=== PATIENT | female | born 2000 | race Caucasian/White ===

== ENCOUNTER 2021-11-12 10:22 | Outpatient (CLI) | payer OTHER, SELFPAY ==
[2021-11-12 11:05] LABS: SARS-CoV-2 RNA PCR Negative (Negative)
== END 2021-11-12 10:23 | disposition home or self-care (01) ==
LOC: CHSLAB 10:24
PROVIDERS: PCP Pediatrics; Visit Provider Nurse Practitioner Pediatrics
DX: Z20.822 Contact with and (suspected) exposure to COVID-19 (principal)
CPT/HCPCS: C9803; U0003; U0005